=== PATIENT | female | born 1985 | race Two or more races ===

== ENCOUNTER 2019-03-20 08:26 | Inpatient (IN) | payer OTHER ==
[~2019-03-20] VITALS: Ht 157.5 cm; Wt 91.6 kg
[2019-03-20] MEDS ORDERED: PRENATAL TABLE1 EAC1 PO (10:40)
== END 2019-03-22 12:19 | DRG 798 ==
LOC: OB/GYN 08:26 → LDR 08:26 → OB/GYN 19:09
PROVIDERS: ADMIT Obstetrics & Gynecology
PROC: 10E0XZZ Delivery of Products of Conception, External Approach (ICD-10-PCS; 2019-03-20)
PROC: 4A0HXFZ Measurement of Products of Conception, Cardiac Rhythm, External Approach (ICD-10-PCS; 2019-03-20)
PROC: 0UL70ZZ Occlusion of Bilateral Fallopian Tubes, Open Approach (ICD-10-PCS; principal; 2019-03-20 17:00)
DX: O80 Encounter for full-term uncomplicated delivery (principal); Z37.0 Single live birth; Z3A.39 39 weeks gestation of pregnancy; Z30.2 Encounter for sterilization

== ENCOUNTER 2022-04-27 16:48 | Emergency (ER) | payer OTHER ==
[~2022-04-27] VITALS: Ht 157.5 cm; Wt 74.8 kg
[~2022-04-27 16:48] MED LIST: PRENATAL TABLE1 EAC1 PO
== END 2022-04-27 23:58 | disposition home or self-care (01) ==
LOC: ER 16:48
DX: N61.1 Abscess of the breast and nipple (principal)